=== PATIENT | female | born 1950 | race Caucasian/White ===

== ENCOUNTER → 2019-05-28 | Outpatient (CLI) | payer MEDICARE ==
--- NOTE | 2019-05-30 16:41 | MAM ---
EXAM DESCRIPTION: 3D Screening BILATERAL : Digital Mammography. CLINICAL HISTORY: 69 years Female SCREEN . No complaints. No personal or family history of breast cancer. Menarche unknown. Childbirth. Postmenopausal 5+ years. No HRT.. Lifetime risk of developing breast cancer (Tyrer-Cuzick model)(%): 7.9. COMPARISON: 2-D digital screening bilateral mammography 11 June 2013. No prior reports available. TECHNIQUE: Bilateral CC and MLO projection full-field images, digital tomosynthesis mammographic technique. Bilateral digital 2-D full-field MLO images. CAD not available for tomosynthesis or 2-D images. FINDINGS: The breast parenchymal density pattern is: Scattered areas of fibroglandular density. No skin thickening or nipple retraction. Left breast axillary lymph node and skin moles. Bilateral solitary microcalcifications. No new focal, stellate mass or density, focal asymmetry , and no suspicious microcalcifications bilaterally. Stable mammograms compared to prior study. Taking into account, differences in mammographic technique. IMPRESSION: Benign exam. BIRAD CATEGORY: 2 BENIGN FINDINGS. RECOMMENDATIONS: FOLLOW UP: Routine digital bilateral mammographic screening, one year interval from May 2019. Written communication explaining the IMPRESSION and follow-up, will be mailed to the patient and referring health care provider. According to the [employer], yearly mammograms are recommended starting at age 40 and continuing as long as a woman is in good health. Any breast change noted on a breast self-exam should be reported promptly to the patient's healthcare provider. Breast MRI is recommended for women with an approximately 20-25% or greater lifetime risk of breast cancer, including women with a strong family history of breast or ovarian cancer and women who have been treated for Hodgkin's disease. A negative mammographic report should not delay tissue diagnosis in patients with significant clinical history or physical findings. Extremely dense breast tissue limits the sensitivity of digital mammography. Electronically signed by: Mac Whitley MD 05/30/2019 4:39 PM CDT
== END ==
LOC: MAMMO 13:31
PROVIDERS: ATTEND Family Medicine
DX: Z12.31 Encounter for screening mammogram for malignant neoplasm of breast (principal)

== ENCOUNTER → 2019-09-19 | Outpatient (CLI) | payer MEDICARE ==
--- NOTE | 2019-09-20 17:37 | RAD ---
EXAM DESCRIPTION: Hand,Right 3 Views: CR/DR/XR CLINICAL HISTORY: 69 years Female LOCALIZED SWELLING, MASS AND LUMP UNSPECIFIED COMPARISON: Left wrist radiographs July 2016. TECHNIQUE: 3 VIEWS AP. Lateral. Oblique. Left wrist. FINDINGS: Overall bone density is decreased. Minimal residual deformity of the left radial styloid. No recurrent fracture, but soft tissue swelling on the radial aspect of the styloid. Minimal narrowing of the radiolunate joint. Small bone density abutting the left ulnar styloid is stable. No acute fracture. Mild arthrosis thumb carpometacarpal joint. Minimal narrowing of the IP joints stable.. IMPRESSION: Soft tissue swelling radial aspect of the left radial styloid possible soft tissue injury. Stable bone density abutting the left ulnar styloid and stable mild arthrosis thumb carpometacarpal joint and the radial lunate joint. Electronically signed by: Mac Whitley MD 09/20/2019 5:36 PM [facility]
== END ==
LOC: RAD 09:18
PROVIDERS: ATTEND Orthopaedic Surgery
DX: M79.9 Soft tissue disorder, unspecified (principal); M18.11 Unilateral primary osteoarthritis of first carpometacarpal joint, right hand; M19.031 Primary osteoarthritis, right wrist